=== PATIENT | female | born 1950 | race Caucasian/White ===

== ENCOUNTER → 2022-05-14 | Day surgery (SDC) | payer OTHER, MEDICARE ==
[~2022-05-14] VITALS: Ht 165.1 cm; Wt 73.5 kg
[~2022-05-14] MED LIST: ASPIRIN EC81 MG PO; DESYREL50 MG PO; ESCITALOPRAM OX10 MG PO; LEVOTHYROXINE50 MCG PO; XANAX0.5 MG PO
[2022-05-14 10:55] LABS: HCT 36.6 % (37.0-47.0); MCH 29.4 pg (25.0-31.0); MCHC 32.8 g/dL (32.0-36.0); MCV 89.7 fL (78.0-100.0); MPV 9.3 fL (6.0-9.5); RBC 4.08 M/uL (4.20-5.40); RDW 12.1 % (11.5-14.0); WBC 4.5 K/uL (4.0-10.5)
== END | disposition home or self-care (01) ==
LOC: FAS 09:17
PROVIDERS: Legal Medicine
DX: M67.432 Ganglion, left wrist (principal); E03.9 Hypothyroidism, unspecified; Z79.82 Long term (current) use of aspirin; Z79.899 Other long term (current) drug therapy; Z88.0 Allergy status to penicillin; Z88.1 Allergy status to other antibiotic agents; Z88.5 Allergy status to narcotic agent; Z88.8 Allergy status to other drugs, medicaments and biological substances; Z91.040 Latex allergy status
CPT/HCPCS: 36415; J2250; J2405; J2704; J2795; J3010; J7120